=== PATIENT | female | born 1970 ===

== ENCOUNTER 2016-07-12 09:39 | Outpatient (CLI) | payer BC ==
--- NOTE | 2016-07-12 11:22 | Mammography Report ---
IMPLANT MAMMOGRAM: Bilateral breast imaging was done with standard and displacement technique. The heterogeneously dense parenchyma is symmetrically seen ventral to each submuscular intact saline implant. The implant contours are smooth. No suspicious findings or secondary signs of malignancy are seen. The findings are unchanged compared to her prior study in June 2015. CAD was utilized. CONCLUSION: Negative implant mammogram. RECOMMENDATION: Routine follow-up. BI-RADS CATEGORY: 1 = Negative ACR BI-RADS MAMMOGRAPHIC CODES: 0 = Needs additional imaging evaluation; 1 = Negative; 2 = Benign; 3 = Probably benign; 4 = Suspicious; 5 = Malignant; 6 = Known biopsy-proven malignancy COMMENT: 1. Dense breast tissue, i.e., adenosis, fibrocystic changes, etc., may obscure an underlying neoplasm. 2. Approximately 10% of cancers are not detected with mammography. 3. A negative mammography report should not delay biopsy if a clinically suspicious mass is present. COMMENT: Patient follow-up letters are generated in [facility].
== END 2016-07-12 09:40 | disposition home or self-care (01) ==
LOC: SPVWC 09:39
PROVIDERS: ATTEND Internal Medicine
DX: Z12.31 Encounter for screening mammogram for malignant neoplasm of breast (principal)
CPT/HCPCS: 77067; G0202